=== PATIENT | male | born 1970 | race Caucasian/White ===

== ENCOUNTER 2021-10-10 17:13 | Emergency (ER) | payer SELFPAY ==
[~2021-10-10] VITALS: Ht 177.8 cm; Wt 75.0 kg
[2021-10-10 17:37] VITALS: BP 122/68
[2021-10-10] MEDS ORDERED: TETANUS, DIPHTHERIA, PERTUSSIS VAC/PF 0.5ML (>10YR OLD) IM ONE (18:00)
== END 2021-10-10 19:18 | disposition left against medical advice (07) ==
LOC: ER 17:13
DX: F10.129 Alcohol abuse with intoxication, unspecified (principal); Y90.0 Blood alcohol level of less than 20 mg/100 ml
CPT/HCPCS: 93005; 99283